=== PATIENT | female | born 1980 | race Caucasian/White ===

== ENCOUNTER 2017-02-03 09:08 | Inpatient (IN) | payer OTHER ==
[~2017-02-03] VITALS: Ht 170.2 cm; Wt 53.0 kg
[~2017-02-03 09:08] MED LIST: ASCO10004 PO; CHOL500015 PO; DIM PO; FERR325T20 PO; IRON; METO10TA82 PO; OXYC-223 PO; PROG100C4 PO; [UNRECOGNIZED DRUG - OTHER] PO; [UNRECOGNIZED DRUG - OTHER] PO
[2017-02-03] MEDS ORDERED: SODIUM CHLORIDE 0.9% 1,000 ML IV ONE (09:57)
[2017-02-03] MEDS ORDERED: SODIUM CHLORIDE FLUSH 10ML SYR IVF ONE (10:00)
[2017-02-03] MEDS ORDERED: ONDANSETRON 2MG/ML, 2ML IVPush ONE ×2 (10:00→13:00)
[2017-02-03] MEDS ORDERED: SODIUM CHLORIDE 0.9% 1,000ML IVBOLUS ONE ×3 (10:00→14:00)
[2017-02-03 11:08] LABS: BLOOD UREA NITROGEN 11 mg/dL (7-18)
[2017-02-03 11:12] LABS: ASPARTATE AMINO TRANSFERASE 12 U/L (15-37)
[2017-02-03 11:23] LABS: DIFF TOTAL CELLS COUNTED 100 CELL DIFF
[2017-02-03 11:24] LABS: ANISOCYTOSIS 1+; VERIFY COUNTS? YES
[2017-02-03 11:25] LABS: LARGE PLATELETS 1+; MICROCYTOSIS 1+; POIKILOCYTOSIS 1+
[2017-02-03] MEDS ORDERED: POTASSIUM CHLORIDE 40 MEQ in SODIUM CHLORIDE 0.9% 1,000 ML IV ONE (11:25)
[2017-02-03 11:30] LABS: PATH.CAST-FLAG NOT PRESENT; SPERM-FLAG NOT PRESENT; SRC-FLAG NOT PRESENT; XTAL-FLAG NOT PRESENT; YLC-FLAG NOT PRESENT
[2017-02-03] MEDS ORDERED: NS + 40MEQ KCL 1,000 ML IV ONE (11:36)
[2017-02-03] MEDS ORDERED: OMNIPAQUE 350 MG/ML, 100ML BOTTLE ONE (12:01)
[2017-02-03] MEDS ORDERED: CEFOTETAN PMX 1GM/50ML 50 ML ONE (12:25)
[2017-02-03] MEDS ORDERED: ONDANSETRON 2MG/ML, 2ML ONE (12:29)
[2017-02-03] MEDS ORDERED: CEFOTETAN PMX 1GM/50ML 50 ML IV ONE (12:30)
[2017-02-03] MEDS ORDERED: SODIUM CHLORIDE FLUSH 10ML SYR IVF PRN (12:30)
[2017-02-03] MEDS ORDERED: DIAZ5TAB PO (13:21)
[2017-02-03] MEDS ORDERED: ONDANSETRON 2MG/ML, 2ML IVPush PRN (14:00)
[2017-02-03] MEDS ORDERED: NS + 20MEQ KCL 1,000 ML IV SCH (14:00)
[2017-02-03] MEDS ORDERED: POTASSIUM CHLORIDE PMX 100 ML IV ONE ×2 (14:00→15:00)
[2017-02-03 14:52] LABS: BLOOD UREA NITROGEN 8 mg/dL (7-18)
[2017-02-03 15:00] VITALS: BP 109/63
[2017-02-03 15:18] LABS: DIFF TOTAL CELLS COUNTED 100 CELL DIFF
[2017-02-03 15:22] LABS: VERIFY COUNTS? YES
[2017-02-03 15:23] LABS: ANISOCYTOSIS 1+; LARGE PLATELETS 1+; MICROCYTOSIS 1+; POIKILOCYTOSIS 1+
[2017-02-03] MEDS ORDERED: PIPERACILLIN/TAZO 3.375 GM in SODIUM CHLORIDE 0.9% 50 ML IV SCH (16:00)
[2017-02-03] MEDS ORDERED: POTASSIUM CHLORIDE 20 MEQ in SODIUM CHLORIDE 0.9% 250 ML IV ONE (16:00)
[2017-02-03] MEDS: PIPERACILLIN/TAZO/PMX 3.375GM 50 ML IV SCH ×2 (17:50→22:31)
[2017-02-03 18:40] LABS: BLOOD UREA NITROGEN 7 mg/dL (7-18)
[2017-02-03] MEDS ORDERED: POTASSIUM CHLORIDE 10 MEQ in SODIUM CHLORIDE 0.9% 250 ML IV ONE ×2 (19:00→21:00)
[2017-02-03] MEDS: KETOROLAC 30 MG/1 ML IVPush PRN (20:09)
[2017-02-03] MEDS: POTASSIUM CHLORIDE 40 MEQ in D5%-0.9% NACL 1,000 ML IV SCH (20:11)
[2017-02-03] MEDS: FAMOTIDINE 20 MG/2 ML IVPush SCH (21:00)
[2017-02-04] MEDS: POTASSIUM CHLORIDE 40 MEQ in D5%-0.9% NACL 1,000 ML IV SCH ×3 (01:36→15:55)
[2017-02-04] MEDS: PIPERACILLIN/TAZO/PMX 3.375GM 50 ML IV SCH ×4 (03:58→22:32)
[2017-02-04 04:06] VITALS: BP 104/63
[2017-02-04 04:27] LABS: BLOOD UREA NITROGEN 9 mg/dL (7-18)
[2017-02-04] MEDS: FAMOTIDINE 20 MG/2 ML IVPush SCH ×2 (08:40→22:32)
[2017-02-04] MEDS: KETOROLAC 30 MG/1 ML IVPush PRN ×3 (08:40→22:32)
[2017-02-04] MEDS ORDERED: IRON DEXTRAN IV PER PHARMACY IV PRN (14:00)
[2017-02-04] MEDS ORDERED: IRON DEXTRAN COMPLEX 25 MG in SODIUM CHLORIDE 0.9% 50 ML IV ONE (14:30)
[2017-02-04 14:32] LABS: BLOOD UREA NITROGEN 8 mg/dL (7-18)
[2017-02-04] MEDS ORDERED: IRON DEXTRAN COMPLEX 1,700 MG in SODIUM CHLORIDE 0.9% 250 ML IV ONE (16:00)
[2017-02-04 17:42] VITALS: BP 90/54
[2017-02-04 19:19] VITALS: BP 101/65
[2017-02-05] MEDS: KETOROLAC 30 MG/1 ML IVPush PRN ×4 (03:59→21:16)
[2017-02-05] MEDS: PIPERACILLIN/TAZO/PMX 3.375GM 50 ML IV SCH ×4 (04:01→21:16)
[2017-02-05] MEDS: POTASSIUM CHLORIDE 40 MEQ in D5%-0.9% NACL 1,000 ML IV SCH ×3 (04:50→18:13)
[2017-02-05 06:51] VITALS: BP 95/58
[2017-02-05] MEDS: FAMOTIDINE 20 MG/2 ML IVPush SCH ×2 (09:09→21:16)
[2017-02-05 14:15] VITALS: BP 109/75
[2017-02-05 19:38] VITALS: BP 116/80
[2017-02-06 03:15] VITALS: BP 112/72
[2017-02-06] MEDS: PIPERACILLIN/TAZO/PMX 3.375GM 50 ML IV SCH ×4 (03:22→22:30)
[2017-02-06] MEDS: POTASSIUM CHLORIDE 40 MEQ in D5%-0.9% NACL 1,000 ML IV SCH ×2 (03:22→11:05)
[2017-02-06] MEDS: KETOROLAC 30 MG/1 ML IVPush PRN ×4 (03:22→23:47)
[2017-02-06 07:26] VITALS: BP 114/80
[2017-02-06] MEDS ORDERED: TPN PER PHARMACY MC PRN ×2 (07:30→08:00)
[2017-02-06] MEDS ORDERED: FAMOTIDINE 20 MG/2 ML IVPush SCH (09:00)
[2017-02-06 09:12] LABS: ASPARTATE AMINO TRANSFERASE 23 U/L (15-37); BLOOD UREA NITROGEN 9 mg/dL (7-18)
[2017-02-06 14:06] VITALS: BP 119/60
[2017-02-06] MEDS ORDERED: DEXTROSE 50%, 50ML SYRINGE IVPush PRN (17:00)
[2017-02-06] MEDS ORDERED: DEXTROSE 70% IV SCH (17:00)
[2017-02-06] MEDS ORDERED: FILTER, DISP 1.2 MICRON FOR TPN/PVN IV PRN (17:00)
[2017-02-06] MEDS ORDERED: FAT EMULSIONS IV SCH (17:00)
[2017-02-06] MEDS ORDERED: [UNRECOGNIZED DRUG - OTHER] IV SCH (17:00)
[2017-02-06] MEDS ORDERED: AMINO ACID 10% IV SCH (17:00)
[2017-02-06] MEDS ORDERED: DEXTROSE 10% 500 ML IV PRN (17:00)
[2017-02-06 20:22] VITALS: BP 137/91
[2017-02-06] MEDS: D5%-0.9% NACL 1,000 ML IV SCH (20:49)
[2017-02-06] MEDS: INSULIN REGULAR LOW DOSE Q6H X 48HRS SQ-INSULIN SCH (22:30)
[2017-02-07 00:05] VITALS: BP 120/87
[2017-02-07] MEDS: PIPERACILLIN/TAZO/PMX 3.375GM 50 ML IV SCH ×4 (04:44→23:07)
[2017-02-07] MEDS: INSULIN REGULAR LOW DOSE Q6H X 48HRS SQ-INSULIN SCH ×4 (05:00→23:00)
[2017-02-07 05:35] LABS: BLOOD UREA NITROGEN 4 mg/dL (7-18)
[2017-02-07] MEDS: D5%-0.9% NACL 1,000 ML IV SCH ×2 (06:28→17:28)
[2017-02-07 07:24] VITALS: BP 114/83
[2017-02-07] MEDS: KETOROLAC 30 MG/1 ML IVPush PRN ×2 (08:23→17:12)
[2017-02-07 14:37] VITALS: BP 124/84
[2017-02-07] MEDS ORDERED: [UNRECOGNIZED DRUG - OTHER] IV SCH (17:00)
[2017-02-07] MEDS ORDERED: AMINO ACID 10% IV SCH (17:00)
[2017-02-07] MEDS ORDERED: FAT EMULSIONS IV SCH (17:00)
[2017-02-07] MEDS ORDERED: DEXTROSE 70% IV SCH (17:00)
[2017-02-07] MEDS ORDERED: FILTER, DISP 1.2 MICRON FOR TPN/PVN IV PRN (17:00)
[2017-02-07] MEDS ORDERED: OXYcodone/APAP 7.5/325MG TABLET PO PRN (18:30)
[2017-02-07 20:28] VITALS: BP 138/87
[2017-02-08] MEDS: KETOROLAC 30 MG/1 ML IVPush PRN ×3 (01:03→15:41)
[2017-02-08 02:50] VITALS: BP 131/75
[2017-02-08] MEDS: INSULIN REGULAR LOW DOSE Q6H X 48HRS SQ-INSULIN SCH (04:37)
[2017-02-08] MEDS: PIPERACILLIN/TAZO/PMX 3.375GM 50 ML IV SCH (04:37)
[2017-02-08 08:30] VITALS: BP 136/92
[2017-02-08 14:15] VITALS: BP 129/84
[2017-02-08 20:50] VITALS: BP 139/88
[2017-02-08] MEDS: ACETAMINOPHEN 500 MG TABLET PO PRN (21:20)
[2017-02-09 02:00] VITALS: BP 123/67
[2017-02-09] MEDS ORDERED: INSULIN REGULAR LOW DOSE QDAY SQ-INSULIN SCH (05:00)
[2017-02-09 06:36] LABS: BLOOD UREA NITROGEN 7 mg/dL (7-18)
[2017-02-09 07:00] VITALS: BP 124/81
[2017-02-09] MEDS ORDERED: OXYC1TAB8 PO (11:51)
[2017-02-09] MEDS ORDERED: FERR325T5 PO (11:52)
[2017-02-09] MEDS ORDERED: SENN-25 PO (11:53)
[2017-02-09] MEDS ORDERED: ACETAMINOPHEN 325 MG TABLET ONE (12:17)
[2017-02-09] MEDS: ACETAMINOPHEN 500 MG TABLET PO PRN (12:20)
== END 2017-02-09 13:00 | disposition home or self-care (01) | DRG 389 ==
LOC: ED 13:15 → EDIP 15:08 → CCU 15:10 → 3NW 02-04 17:29
PROVIDERS: ADMIT Specialist; ATTEND Specialist
PROC: 02HV33Z Insertion of Infusion Device into Superior Vena Cava, Percutaneous Approach (ICD-10-PCS; principal; 2017-02-05)
PROC: B548ZZA Ultrasonography of Superior Vena Cava, Guidance (ICD-10-PCS; 2017-02-05)
DX: K56.7 Ileus, unspecified (principal); E87.1 Hypo-osmolality and hyponatremia; E46 Unspecified protein-calorie malnutrition; C56.9 Malignant neoplasm of unspecified ovary; Z68.1 Body mass index [BMI] 19.9 or less, adult; Z85.42 Personal history of malignant neoplasm of other parts of uterus; E87.6 Hypokalemia; Z90.722 Acquired absence of ovaries, bilateral; D64.9 Anemia, unspecified
CPT/HCPCS: 36415; 36569; 70450; 71010; 74000; 74177; 76937; 77001; 80048; 80053; 81001; 82140; 82962; 83605; 83735; 84100; 84132; 84134; 84145; 84478; 85025; 85610; 85730; 87040; 87081; 87086; 87324; 93005; 96361; 96365; 96367; J0610; J1750; J1885; J2405; J2543; J3475; J3480; J7042; Q9967; C1751; J3420; J7030; J7050; S0028; S0074